=== PATIENT | female | born 1990 | race Caucasian/White ===

== ENCOUNTER → 2021-09-12 10:06 | Outpatient (BNVA) | payer OTHER, SELFPAY | PROVIDERS: Visit Provider Physician Assistant Medical | DX: S60.212A Contusion of left wrist, initial encounter (principal); W00.0XXA Fall on same level due to ice and snow, initial encounter; Z23 Encounter for immunization | CPT/HCPCS: 73110; 73130; 99203 ==

== ENCOUNTER → 2022-10-19 13:22 | Outpatient (BNVA) | payer OTHER, SELFPAY | PROVIDERS: Visit Provider Physician Assistant | DX: S67.192D Crushing injury of right middle finger, subsequent encounter (principal); X58.XXXD Exposure to other specified factors, subsequent encounter | CPT/HCPCS: 73140; 99204 ==

== ENCOUNTER → 2022-10-26 13:57 | Outpatient (BNVA) | payer OTHER, SELFPAY | PROVIDERS: Visit Provider Physician Assistant | DX: S67.192D Crushing injury of right middle finger, subsequent encounter (principal); W23.0XXD Caught, crushed, jammed, or pinched between moving objects, subsequent encounter | CPT/HCPCS: 99213 ==